=== PATIENT | female | born 2005 | race Caucasian/White ===

== ENCOUNTER 2024-03-26 05:32 | Inpatient (IN) ==
[2024-03-26] MEDS ORDERED: LIDOCAINE 1% LOCAL 20 ML VIAL INFIL PRN (06:31)
[2024-03-26] MEDS ORDERED: OXYTOCIN 30 UNITS/NSS 30 UNITS/500 ML BAG IV PRN ×2 (06:31→17:51)
[2024-03-26] MEDS ORDERED: CALCIUM CARBONATE 500 MG CHEWABLE TAB PO PRN (06:31)
[2024-03-26] MEDS ORDERED: ACETAMINOPHEN 500 MG TAB PO PRN (06:31)
[2024-03-26] MEDS ORDERED: Patient's ALLERGY Info needs ENTERED STA (06:47)
[2024-03-26 07:18] LABS: Hematocrit (blood only) 33.3 % (37.0-47.0); Hemoglobin 11.7 g/dl (12.0-16.0); Mean Corpuscular Hemoglobin 30.8 pg (25.0-34.0); Mean Corpuscular Hgb Conc 35.1 g/dL (32.0-36.0); Mean Corpuscular Volume 87.6 fL (80.0-100.0); Mean Platelet Volume 10.4 fL (9.4-12.4); Platelet Count 236 K/uL (130-400); RDW Coefficient of Variation 14.2 % (11.5-14.5); RDW Standard Deviation 45.1 fL (36.4-46.3); White Blood Count 11.75 K/ul (4.8-10.8)
--- NOTE | 2024-03-26 11:38 | History & Physical Report ---
Date of Service March 26, 2024 Assessment & Plan (1) Term : Plan: Start Oxytocin to augment contractions Admission and Anticipated Discharge Date Admission Date: March 26, 2024 History of Present Illness Chief Complaint: ruptured membranes Primary Care Provider: RUY PCP 18 F P0000 at 37.5 weeks presents with SROM clear fluid at 0330. GBS is negative. Home Medications Medication Instructions Recorded Confirmed Type aspirin 81 mg chewable tablet 81 mg PO DAILY 03/26/24 03/26/24 History buspirone 10 mg tablet 10 mg PO BID 03/26/24 03/26/24 History ferrous sulfate 325 mg (65 mg 325 mg PO DAILY 03/26/24 03/26/24 History iron) tablet (Iron (ferrous sulfate)) levothyroxine 75 mcg tablet 75 mcg PO DAILY 03/26/24 03/26/24 History omeprazole 40 mg capsule,delayed 40 mg PO DAILY 03/26/24 03/26/24 History release vits no.124-ferrous fum 1 tab PO DAILY 03/26/24 03/26/24 History 27 mg iron-folic acid 800 mcg tablet ( Vitamin) Patient History Medical History Hypothyroidism Surgical History History of tonsillectomy Social History Smoking Status: Former smoker Tobacco Type: E-cigarettes / Vaping Hx Alcohol Use: No Hx Substance Use: No Preferred Language: [place]ian [employer]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 Beliefs That Will Affect Care: None marital status: Single Current Living Situation: Family Other Information That Helps Us Care for You: No Feels Safe at Home: Yes Safety Concerns: Feels Safe At This Time OB History primip Physical Exam Constitutional: WD/WN, vitals as above Eyes: PERRL, conjunctivae normal, anicteric sclerae Respiratory: normal respiratory effort, lungs clear to auscultation Cardiovascular: Rate/Rhythm: regular rate and regular rhythm Gastrointestinal (Abdomen): Inspection/Auscultation: abdomen normal to inspection Musculoskeletal: Extremities: extremities normal to inspection Skin: no rashes, warm and dry Neurologic: patellar DTR's 2+ bilat, sensation intact Psychiatric: A+Ox3, euthymic affect Genitourinary: no vaginal lesions, no adnexal mass OB Exam Abdomen: + fundal height, + vertex and + posterior Manual OB Exam: + cervical dilation 2 cm, + cervical effacement 90%, + station -2 and + amniotic fluid clear EFW 7.5lbs. Results & Data Vital Signs (Past 12 Hours) Vital Signs Temp Pulse Resp BP 03/26/24 09:46 106 H 03/26/24 09:46 126/73 03/26/24 06:02 37.2 C 18 03/26/24 06:01 127 H 143/86 H
[2024-03-26] MEDS: LACTATED RINGER'S 1,000 ML IV PRN (12:02)
[2024-03-26] MEDS: OXYTOCIN 30 UNITS/NSS 30 UNITS/500 ML BAG IV PRN (12:04)
[2024-03-26] MEDS: busPIRone 5 MG TAB PO SCH ×2 (12:34→22:15)
[2024-03-26] MEDS ORDERED: BUTORPHANOL TARTRATE 2 MG/ML VIAL IV PRN (14:24)
--- NOTE | 2024-03-26 14:24 | Labor Progress Brief Note ---
Date of Service March 26, 2024 Assessment & Plan Admission and Anticipated Discharge Date Admission Date: March 26, 2024 Physical Exam Genitourinary: Manual OB Exam: + cervical dilation 4 cm and 5 cm, + cervical effacement 100%, + station 0 and + amniotic fluid clear OB Exam Monitor Tracing: + external FHT monitor used, + external uterine monitor used, + category I and + normal FHT variability Results & Data Vital Signs (Past 12 Hours) Vital Signs Temp Pulse Resp BP 03/26/24 14:19 107 H 03/26/24 14:19 143/73 H 03/26/24 13:04 110 H 03/26/24 13:04 126/71 03/26/24 11:59 116 H 03/26/24 11:59 37.2 C 20 128/69 03/26/24 09:46 106 H 03/26/24 09:46 37.1 C 126/73 03/26/24 08:00 36.9 C 20 03/26/24 06:02 37.2 C 18 03/26/24 06:01 127 H 143/86 H
[2024-03-26] MEDS: fentANYL 2 MCG/ML BUPIVacaine 0.125%-NSS 100ML BAG ONE (15:08)
[2024-03-26] MEDS: SODIUM CHLORIDE 0.9% PF INJ 10 ML VIAL ONE (15:13)
[2024-03-26] MEDS: LIDOCAINE 2%/EPINEPHRINE 1:200,000 20 ML PF ONE (15:13)
[2024-03-26] MEDS: BUPIVACAINE 0.25% PF 30 ML VIAL ONE (15:13)
[2024-03-26] MEDS: ePHEDrine sulfate 50 MG/ML AMP ONE (15:16)
[2024-03-26] MEDS: fentaNYL citrate PF 100 MCG/2 ML VIAL ONE (15:16)
[2024-03-26] MEDS ORDERED: diphenhydrAMINE 50 MG/ML VIAL IV PRN (15:18)
[2024-03-26] MEDS ORDERED: LIDOCAINE 2%/EPINEPHRINE 1:200,000 20 ML PF EPI STA (15:18)
[2024-03-26] MEDS ORDERED: ONDANSETRON INJ 2 MG/ML 2 ML VIAL IV PRN (15:18)
[2024-03-26] MEDS ORDERED: fentaNYL citrate PF 100 MCG/2 ML VIAL EPI PRN (15:18)
[2024-03-26] MEDS ORDERED: NALOXONE HCL 0.4 MG/1 ML VIAL/CARP IV PRN (15:18)
[2024-03-26] MEDS ORDERED: BUPIVACAINE 0.25% PF 30 ML VIAL EPI PRN (15:18)
[2024-03-26] MEDS ORDERED: BUPIVACAINE 0.25% PF 30 ML VIAL EPI STA (15:18)
[2024-03-26] MEDS ORDERED: fentANYL 2 MCG/ML BUPIVacaine 0.125%-NSS 100ML BAG EPI PRN (15:18)
[2024-03-26] MEDS ORDERED: LIDOCAINE 2% MPF LOCAL 5 ML VIAL EPI PRN (15:18)
[2024-03-26] MEDS ORDERED: NALOXONE HCL 1 MG in SODIUM CHLORIDE 0.9% 1,000 ML IV PRN (15:18)
[2024-03-26] MEDS ORDERED: ePHEDrine sulfate 50 MG/ML AMP IV PRN (15:18)
[2024-03-26] MEDS ORDERED: NALBUPHINE HCL INJ 10 MG/ML AMP IV PRN (15:18)
[2024-03-26] MEDS ORDERED: fentaNYL citrate PF 100 MCG/2 ML VIAL EPI STA (15:18)
[2024-03-26] MEDS ORDERED: SODIUM CHLORIDE 0.9% PF INJ 10 ML VIAL EPI STA (15:18)
[2024-03-26] MEDS ORDERED: ROPIVACAINE 0.5% PF 5 MG/ML 20 ML VIAL EPI PRN (15:18)
[2024-03-26] MEDS ORDERED: SODIUM CHLORIDE 0.9% PF INJ 10 ML VIAL EPI PRN (15:18)
--- NOTE | 2024-03-26 15:18 | Anesthesiology Consultation ---
Date of Service March 26, 2024 Assessment & Plan Chart Review Chart Review: Patient NOT seen in Pre Admission Testing and Acceptable Risk for Labor Epidural Consults Requested none ASA ASA2 Proposed Anesthesia Anesthesia Type: Labor Epidural Risk / Benefits Reviewed With: PT / POA / Parent / Guardian, Accepts Plan and Informed Consent Obtained History Height/Weight Height: 5 ft 5 in Weight: 127.459 kg Allergies Allergy/AdvReac Type Severity Reaction Status Date / Time No Known Drug Allergies Allergy Unknown Verified 03/26/24 12:33 Medications Home Medications Medication Instructions Recorded Confirmed Last Taken aspirin 81 mg chewable tablet 81 mg PO DAILY 03/26/24 03/26/24 03/25/24 09:30 buspirone 10 mg tablet 10 mg PO BID 03/26/24 03/26/24 03/25/24 22:00 ferrous sulfate 325 mg (65 mg 325 mg PO DAILY 03/26/24 03/26/24 03/25/24 22:00 iron) tablet (Iron (ferrous sulfate)) levothyroxine 75 mcg tablet 75 mcg PO DAILY 03/26/24 03/26/24 03/25/24 06:30 omeprazole 40 mg capsule,delayed 40 mg PO DAILY 03/26/24 03/26/24 03/25/24 22:00 release vits no.124-ferrous fum 1 tab PO DAILY 03/26/24 03/26/24 03/25/24 22:00 27 mg iron-folic acid 800 mcg tablet ( Vitamin) Active Medications Generic Name Dose Route Start Last Admin Trade Name Freq PRN Reason Stop Dose Admin Buspirone HCl 10 mg 03/26/24 12:00 03/26/24 12:34 Buspirone 5 Mg Tab PO 04/25/24 11:59 10 mg BID ALISHA Administration Lactated Ringer's 1,000 mls @ 125 mls/hr 03/26/24 06:31 03/26/24 15:11 Lr IV 03/28/24 06:30 125 mls/hr .Q8H PRN Administration L&D Protocol Protocol Oxytocin 30 units in 500 mls @ 7 mls/hr 03/26/24 11:31 03/26/24 15:15 Pitocin 30 Units/Nss IV 03/28/24 11:30 0.54 units/hr .Q24H PRN 9 mls/hr Labor Induction/Augmentation Titration Protocol 0.42 UNITS/HR Past Medical History Medical History Hypothyroidism Exercise / Class Metabolic Activity II 4-5 Yardwork/Stairs/Walk up hill Past Surgical History Surgical History History of tonsillectomy Past Anesthesia History No Hx of Anesthesia Complications and No Family Hx of Anesthesia Complications History of PONV No Hx of PONV and No Hx of Motion Sickness Social History Smoking Status: Former smoker Hx Alcohol Use: No Hx Substance Use: No Physical Exam Vital Signs Last Vital Signs Temp 37.2 C 03/26/24 11:59 Pulse 105 H 03/26/24 15:15 Resp 20 03/26/24 11:59 BP 146/84 H 03/26/24 15:15 Pulse Ox 98 03/26/24 15:14 ENMT Mouth: no dentition abnormality Thyromental Distance: > or= 3.5 Finger Breadths Mallampati Class: II Neck normal visual inspection Respiratory normal respiratory effort Auscultation: lungs clear to auscultation bilaterally Cardiovascular Rate/Rhythm: regular rate and regular rhythm Psychiatric Orientation: alert Testing Laboratory Results 03/26/24 06:55 Blood Type O Positive 03/26/24 06:55 Antibody Screen NEGATIVE 03/26/24 06:55
--- NOTE | 2024-03-26 17:49 | Delivery Summary ---
Vaginal Delivery Summary Date of Service March 26, 2024 Vaginal Delivery Summary live male IVORY over intact perineum with nuchal cord x4 reduced at delivery of head with delayed cord clamping. Apgars 8/9 weight pending. Cord blood obtained followed by spontaneous delivery of intact placenta with true knot in cord. Cord length was 48 inches. Small tear at introitus repaired with figure of eight 3/0 suture. Final sponge, needle and instrument count are correct. QBL 130 ml. Mom and baby stable.
[2024-03-26] MEDS ORDERED: HYDROCORTISONE ACETATE 25 MG SUPP PR PRN (17:51)
[2024-03-26] MEDS ORDERED: bisacodyL 10 MG SUPP PR PRN (17:51)
[2024-03-26] MEDS ORDERED: ACETAMINOPHEN 325 MG TAB PO PRN (17:51)
[2024-03-26] MEDS: DIPHTHER/TETAN/PERTUS Vaccine (Tdap, Adol/Adult) 0.5mL IM ONE (18:23)
--- NOTE | 2024-03-26 18:40 | Anesthesia Procedure Note ---
Date of Service March 26, 2024 Anesthesia Post Epidural Note Vital Signs Vital Signs: Temp Pulse Resp BP Pulse Ox 37.2 C 122 H 20 122/70 99 03/26/24 15:16 03/26/24 18:37 03/26/24 18:25 03/26/24 18:37 03/26/24 17:24 Pain Intensity Bilateral Abdomen: Pain Intensity: 0 Notes Mental Status: alert / awake / arousable Nausea / Vomiting: adequately controlled Pain: adequately controlled Airway Patency, RR, SpO2: stable & adequate BP & HR: stable & adequate Hydration State: stable & adequate Neuraxial Anesthesia: was administered and sensory block is resolving Anesthetic Complications: no major complications apparent and Pt Satisfied with anesthetic care Epidural: Removed without complications and With tip intact
[2024-03-26] MEDS: BENZOCAINE 20% SPRY 85 APPLN/85 GM CAN EXT PRN (19:46)
[2024-03-26] MEDS ORDERED: Nursing to Pharmacy Communication SCH (20:00)
[2024-03-26] MEDS: DOCUSATE SODIUM 100 MG CAP PO SCH (21:13)
[2024-03-27] MEDS: LEVOTHYROXINE SODIUM 75 MCG TABLET PO SCH (06:14)
[2024-03-27 07:03] LABS: Hematocrit (blood only) 28.6 % (37.0-47.0); Hemoglobin 9.9 g/dl (12.0-16.0); Mean Corpuscular Hemoglobin 30.8 pg (25.0-34.0); Mean Corpuscular Hgb Conc 34.6 g/dL (32.0-36.0); Mean Corpuscular Volume 89.1 fL (80.0-100.0); Mean Platelet Volume 10.7 fL (9.4-12.4); Platelet Count 207 K/uL (130-400); RDW Coefficient of Variation 14.4 % (11.5-14.5); RDW Standard Deviation 46.6 fL (36.4-46.3); Red Blood Count 3.21 M/uL (4.20-5.40); White Blood Count 12.62 K/ul (4.8-10.8)
--- NOTE | 2024-03-27 08:53 | Obstetrical Progress Note ---
Date of Service March 27, 2024 Assessment & Plan Admission and Anticipated Discharge Date Admission Date: March 26, 2024 Subjective Patient is seen and examined. She feels well, no complaints. Ambulating without dizziness Voiding without difficulty Tolerating regular diet with out N&V Bleeding is minimal No fever/ chills/ CP/ SOB/ N&V/ Leg pain Breast feeding without problems Lab Results 03/26/24 03/27/24 Range/Units 06:55 06:24 WBC 11.75 H 12.62 H (4.8-10.8) K/ul RBC 3.80 L 3.21 L (4.20-5.40) M/uL Hgb 11.7 L 9.9 L (12.0-16.0) g/dl Hct 33.3 L 28.6 L (37.0-47.0) % MCV 87.6 89.1 (80.0-100.0) fL MCH 30.8 30.8 (25.0-34.0) pg MCHC 35.1 34.6 (32.0-36.0) g/dL RDW Std Deviation 45.1 46.6 H (36.4-46.3) fL RDW Coeff of Addis 14.2 14.4 (11.5-14.5) % Plt Count 236 207 (130-400) K/uL MPV 10.4 10.7 (9.4-12.4) fL Blood Type O Positive Antibody Screen NEGATIVE Vital Signs Temp Pulse Resp BP Pulse Ox O2 Del Method 03/27/24 02:30 37.1 C 114 H 18 95/67 L 98 Room Air 03/26/24 23:00 36.6 C 115 H 18 131/83 98 Room Air PE: General: Alert, orientedx3, NAD Abd: soft, NT, fundus firm, below Umbilicus Perineum intact, Lochia rubra minimal Ext; NT, no edema AP: 18 yo s/p , ppd# 1 VSS Afebrile doing well Continue routine care All questions were answered D/C home tomorrow Results & Data Vital Signs (Past 12 Hours) Vital Signs Temp Pulse Resp BP Pulse Ox O2 Del Method 03/27/24 02:30 37.1 C 114 H 18 95/67 L 98 Room Air 03/26/24 23:00 36.6 C 115 H 18 131/83 98 Room Air
[2024-03-27] MEDS: PANTOprazole 40 MG TAB PO SCH (08:54)
[2024-03-27] MEDS: FERROUS SULFATE 325 MG TAB PO SCH (08:54)
[2024-03-27] MEDS: PRENATAL VITAMIN 1 TAB PO SCH (08:54)
[2024-03-27] MEDS ORDERED: FERROUS SULFATE 325 MG TAB PO SCH (09:00)
[2024-03-27] MEDS ORDERED: LEVOTHYROXINE SODIUM 75 MCG TABLET PO SCH (09:00)
[2024-03-27] MEDS ORDERED: PRENATAL VITAMIN 1 TAB PO SCH (09:00)
[2024-03-27] MEDS: bisacodyL 5 MG TABEC PO SCH (20:11)
[2024-03-27] MEDS: IBUPROFEN 600 MG TAB PO PRN (21:21)
[2024-03-28 03:29] VITALS: RESP 16; TEMP 97.9; O2SAT 100
[2024-03-28 06:30] LABS: Hematocrit (blood only) 30.6 % (37.0-47.0); Hemoglobin 10.3 g/dl (12.0-16.0)
[2024-03-28 07:52] VITALS: BP 131/83
--- NOTE | 2024-03-28 10:03 | Obstetrical Progress Note ---
Date of Service March 28, 2024 Subjective Ambulation: ambulating normally Voiding: no voiding problems Passing Gas:: Yes Diet Tolerance:: regular diet Lochia:: Small Feeding Type:: breast feeding Current Pain Level(1-10): 0 doing well Physical Exam Constitutional WD/WN, vitals as above Gastrointestinal (Abdomen) Inspection/Auscultation: abdomen normal to inspection abdomen soft and non-tender. fundus firm below U Musculoskeletal Extremities: extremities normal to inspection Skin no rashes, warm and dry Neurologic patellar DTR's 2+ bilat, sensation intact Psychiatric A+Ox3, euthymic affect Results & Data Vital Signs (Past 12 Hours) Vital Signs Temp Pulse Resp BP Pulse Ox O2 Del Method 03/28/24 07:45 36.6 C 84 16 131/83 100 Room Air 03/28/24 03:25 36.6 C 76 16 99/65 L 100 Room Air Laboratory Results Laboratory Results - last 72 hr 03/26/24 03/27/24 03/28/24 06:55 06:24 05:19 WBC 11.75 H 12.62 H RBC 3.80 L 3.21 L Hgb 11.7 L 9.9 L 10.3 L Hct 33.3 L 28.6 L 30.6 L MCV 87.6 89.1 MCH 30.8 30.8 MCHC 35.1 34.6 RDW Std Deviation 45.1 46.6 H RDW Coeff of Addis 14.2 14.4 Plt Count 236 207 MPV 10.4 10.7 Treponema pallidum Ab Negative Blood Type O Positive Antibody Screen NEGATIVE
[2024-03-28 10:30] VITALS: PULSE 96
== END 2024-03-28 11:18 | disposition home or self-care (01) | DRG 807 ==
LOC: OPB 05:32 → 4S1 05:46 → 4E2 20:00